=== PATIENT | female | born 1985 ===

== ENCOUNTER 2017-04-25 08:33 | Inpatient (IN) | payer MEDICAID ==
[2017-04-25] MEDS ORDERED: ePHEDrine SULFATE IV PRN ×2 (12:39→14:24)
[2017-04-25] MEDS ORDERED: BRETHINE IVP PRN (12:39)
[2017-04-25] MEDS ORDERED: STADOL IV PRN (12:39)
[2017-04-25] MEDS ORDERED: MINERAL OIL PO PRN (12:39)
[2017-04-25] MEDS ORDERED: ZOFRAN IV PRN ×2 (12:39→22:24)
[2017-04-25] MEDS ORDERED: BRETHINE SUB-Q PRN (12:39)
[2017-04-25] MEDS ORDERED: NARCAN 0.4 MG/1 ML IV PRN (12:39)
[2017-04-25] MEDS ORDERED: POLYCILLIN/NS 2 GM/100 ML 2 GM/100 ML BAG IV ONE (12:39)
[2017-04-25] MEDS ORDERED: SUBLIMAZE IV PRN (12:39)
[2017-04-25] MEDS ORDERED: XYLOCAINE 2% INFILTRATI ONE (12:39)
[2017-04-25 12:43] LABS: Hematocrit 34.3 % (30.3-42.9); Hemoglobin 11.4 gm/dl (10.1-14.3); Mean Corpuscular HGB Conc 33 % (30-34); Mean Corpuscular Hemoglobin 29 pg (28-32); Mean Corpuscular Volume 86 fl (79-97); Platelet Count 187 K/mm3 (140-440); Red Blood Count 3.99 M/mm3 (3.65-5.03); Red Cell Distribution Width 13.6 % (13.2-15.2)
[2017-04-25] MEDS ORDERED: LACTATED RINGERS 1,000 ML IV SCH (13:00)
[2017-04-25] MEDS ORDERED: PITOCin/NS 20 UNIT/1000ML DRIP 20 UNITS/1,000 ML BAG IV SCH ×2 (13:00→22:24)
[2017-04-25] MEDS: LACTATED RINGERS 1,000 ML IV SCH ×3 (13:17→17:53)
[2017-04-25] MEDS ORDERED: NARCAN 2 MG/2 ML IV PRN (14:24)
[2017-04-25] MEDS ORDERED: fentaNYL-BUPIV 2 MCG/ML-0.125% 200 MCG/100 ML BAG EPIDURAL SCH (15:00)
--- NOTE | 2017-04-25 16:11 | History and Physical Report ---
History of Present Illness Date of examination: 04/25/17 Date of admission: 04/25/17 08:34 Chief complaint: contractions History of present illness: Pt is a 31 year old -F[place] female JOYCE 04/29/17 at 39w3d who presents with regular painful contractions and cervical change from 3-4 cm with ambulation. She denies leakage of fluid and vaginal bleeding. She has had insufficient care x 3 visits at [facility] at 12, 22 and 28 wks complicated by pyelectasis (followed by MFM), glucose intolerance ( pt never completed her 3 hr GTT). Her GBS status in unknown. Past History Past Medical History: no pertinent history Past Surgical History: no surgical history Family/Genetic History: diabetes, heart disease, hypertension Social history: no significant social history - Obstetrical History Expected Date of Delivery: 04/29/17 Actual Gestation: 39 Week(s) 3 Day(s) : 2 Para: 1 Hx # Term Pregnancies: 1 Number of Pregnancies: 0 Spontaneous Abortions: 0 Induced : 0 Number of Living Children: 1 Medications and Allergies Allergies Allergy/AdvReac Type Severity Reaction Status Date / Time No Known Allergies Allergy Verified 04/25/17 09:18 Home Medications Medication Instructions Recorded Confirmed Last Taken Type 2/Iron/Folic Acid/Om3 1 each PO DAILY 04/25/17 04/25/17 04/24/17 09:00 History [Complete Jaquelin Dha] 1 Active Meds: Active Medications Butorphanol Tartrate (Stadol) 2 mg IV Q2H PRN PRN Reason: Pain , Severe (7-10) Ephedrine Sulfate (Ephedrine Sulfate) 10 mg IV Q2M PRN PRN Reason: Hypotension Ephedrine Sulfate (Ephedrine Sulfate) 10 mg IV Q2M PRN PRN Reason: Hypotension Fentanyl (Sublimaze) 100 mcg IV Q2H PRN PRN Reason: Labor Pain Lactated Ringer's (Lactated Ringers) 1,000 mls @ 125 mls/hr IV DIRECT CASSIDY Last Admin: 04/25/17 15:57 Dose: 125 mls/hr Ampicillin Sodium (Polycillin/Ns 1 Gm/50 Ml) 1 gm in 50 mls @ 100 mls/hr IV Q4HR CASSIDY PRN Reason: Protocol Lactated Ringer's (Lactated Ringers) 1,000 mls @ 125 mls/hr IV DIRECT CASSIDY Oxytocin/Sodium Chloride (Pitocin/Ns 20 Unit/1000ml Drip) 20 units in 1,000 mls @ 125 mls/hr IV DIRECT CASSIDY Oxytocin/Sodium Chloride (Pitocin/Ns 30 Unit/500ml) 30 units in 500 mls @ 4 mls /hr IV TITR CASSIDY PRN Reason: Protocol Fentanyl/Bupivacaine/Sodium Chlor (Fentanyl-Bupiv 2 Mcg/Ml-0.125%) 200 mcg in 100 mls @ 12 mls/hr EPIDURAL TITR CASSIDY PRN Reason: Protocol Mineral Oil (Mineral Oil) 30 ml PO QHS PRN PRN Reason: Constipation Naloxone HCl (Narcan 0.4 Mg/1 Ml) 0.1 mg IV Q2MIN PRN PRN Reason: Res Rate </= 8 or 02 SAT < 92% Naloxone HCl (Narcan 2 Mg/2 Ml) 0.2 mg IV Q5M PRN PRN Reason: Respiratory sedation Ondansetron HCl (Zofran) 4 mg IV Q8H PRN PRN Reason: Nausea And Vomiting Terbutaline Sulfate (Brethine) 0.25 mg SUB-Q ONCE PRN PRN Reason: Hyperstimulation/Hypertonicity Terbutaline Sulfate (Brethine) 0.25 mg IVP ONCE PRN PRN Reason: Hyperstimulation/Hypertonicity Review of Systems All systems: negative - Vital Signs Vital signs: Vital Signs Temp Resp 98.3 F 18 04/25/17 09:21 04/25/17 09:21 Temp Pulse Resp BP Pulse Ox 98.3 F 93 H 18 110/62 98 04/25/17 09:21 04/25/17 16:09 04/25/17 09:21 04/25/17 16:09 04/25/17 16:07 - Physical Exam Breasts: Positive: deferred Cardiovascular: Regular rate Lungs: Positive: Clear to auscultation Abdomen: Positive: soft (gravid ) Uterus: Positive: enlarged (gravid ) - Obstetrical FHR: category 1 Uterine Contraction Monitor Mode: External Cervical Dilatation: 4 (per RN ) Uterine Contraction Pattern: Irregular Uterine Tone Measurement Phase: Resting Uterine Contraction Intensity: Moderate Results Result Diagrams: 04/25/17 11:00 Abnormal lab results 04/25/17 Range/Units 11:00 WBC 12.2 H (4.5-11.0) K/mm3 All other labs normal. Assessment and Plan A: IUP at 39w3d Labor Insufficient Care GBS unknown Pyelectasis P: Admit to labor and delivery. GBS prophyalxis Routine intrapartum care.
[2017-04-25] MEDS ORDERED: POLYCILLIN/NS 1 GM/50 ML 1 GM/50 ML BAG IV SCH (16:41)
[2017-04-25] MEDS: PITOCin/NS 30 UNIT/500ML 30 UNITS/500 ML BAG IV SCH ×3 (17:06→18:05)
--- NOTE | 2017-04-25 17:22 | Event Note ---
Date: 04/25/17 Late entry. Pt comfortable with epidural. FHTs Category I. Cervix /. AROM - clear fluid. Second dose of Ampicillin hanging now. Begin pitocin augmentation as needed. Continue routine intrapartum care.
--- NOTE | 2017-04-25 19:31 | Procedure Note ---
OB Delivery Note - Delivery Date of Delivery: 04/25/17 Surgeon: LEO SUAREZ Estimated blood loss: 300cc - Vaginal Delivery presentation: vertex Intrapartum events: PROM->1hr before delivery Delivery induction: none Delivery augmentation: rupture of membranes, pitocin Delivery monitor: external FHT, external uterine Route of delivery: Delivery placenta: spontaneous Delivery cord: 3 umbilical vessels Episiotomy: none Delivery laceration: 1st degree (perineal and vaginal ), other (Bilateral periurethral ) Delivery repair: vicryl Anesthesia: epidural Delivery comments: Pt was last checked and noted to be 8.5 cm. Pt comfortable with epidural without complaint of pressure. FHTs noted to not be on tracing. Upon RN entry into the room, the was noted to be in the bed. NICU called for resuscitation. Upon on-call MD entry into the room, was being stimulated by NICU staff. Cord clamped and cut and handed to NICU staff at warmer. Cord blood not collected. Placenta delivered spontaneously (3VC, intact) . Vagina and perineum explored. Bilateral periurethral, first degree vaginal and first degree periurethral with 3-0 Vicryl in a standard fashion. EBL 300 mL. - Infant A at 1 minute: 3 at 5 minutes: 9 Infant Gender: Male (3382g (7lb 7oz) at 1855 pm)
[2017-04-25] MEDS ORDERED: PHENERGAN PO PRN (22:24)
[2017-04-25] MEDS ORDERED: DERMOPLAST TP PRN (22:24)
[2017-04-25] MEDS ORDERED: DULCOLAX PR PRN (22:24)
[2017-04-25] MEDS ORDERED: NORCO 5/325 PO PRN (22:24)
[2017-04-25] MEDS ORDERED: BENADRYL PO PRN (22:24)
[2017-04-25] MEDS ORDERED: MILK OF MAGNESIA PO PRN (22:24)
[2017-04-25] MEDS ORDERED: LANSINOH TP PRN ×2 (22:24)
[2017-04-25] MEDS ORDERED: SODIUM CHLORIDE FLUSH SYRINGE 10 ML IV PRN (22:24)
[2017-04-25] MEDS ORDERED: PHENERGAN PR PRN (22:24)
[2017-04-25] MEDS ORDERED: TYLENOL PO PRN (22:24)
[2017-04-25] MEDS ORDERED: FEOSOL PO SCH (22:24)
[2017-04-25] MEDS ORDERED: TUCKS PAD TP PRN (22:24)
[2017-04-26] MEDS: MOTRIN PO SCH ×4 (00:13→18:25)
[2017-04-26 09:38] LABS: Hematocrit 36.4 % (30.3-42.9); Hemoglobin 12.2 gm/dl (10.1-14.3)
[2017-04-26] MEDS ORDERED: PRENATAL VITAMIN PO SCH (10:00)
--- NOTE | 2017-04-26 15:25 | Progress Note ---
Assessment and Plan O: VSS AF A: Stable PP Day 1 PP H/H: 12.2/36.4 P: Stable PP Day 1 D/C home per request Subjective - Subjective Date of service: 04/26/17 Patient reports: appetite normal, voiding normally, pain well controlled, ambulating normally [place]: doing well, nursing well Objective - Vital Signs Latest vital signs: Vital Signs Temp Pulse Resp BP BP Pulse Ox 04/26/17 08:26 98.5 F 77 18 105/64 99 04/26/17 06:20 18 04/26/17 00:13 18 04/26/17 00:00 98.4 F 89 20 104/59 96 04/25/17 21:00 97.7 F 68 18 99/49 04/25/17 20:24 78 111/60 04/25/17 20:09 66 117/74 04/25/17 19:54 75 113/73 04/25/17 19:40 71 97 04/25/17 19:39 77 109/66 04/25/17 19:35 80 98 04/25/17 19:30 93 H 100 04/25/17 19:25 92 H 99 04/25/17 19:24 94 H 137/64 04/25/17 19:20 78 98 04/25/17 19:15 78 98 04/25/17 19:10 87 98 04/25/17 19:09 97.6 F 82 18 109/66 04/25/17 19:07 86 107/55 04/25/17 19:05 88 118/63 04/25/17 19:03 103 H 124/60 04/25/17 19:02 96 H 134/59 04/25/17 18:57 76 104/55 98 04/25/17 18:55 74 104/58 04/25/17 18:53 81 102/55 04/25/17 18:52 80 97 04/25/17 18:51 78 103/58 04/25/17 18:50 104 H 94 04/25/17 18:49 80 101/60 04/25/17 18:47 80 103/57 95 04/25/17 18:45 77 100/57 04/25/17 18:43 81 100/57 04/25/17 18:42 87 96 04/25/17 18:41 92 H 103/61 02/02/18 18:39 80 102/58 02/02/18 18:37 78 103/54 97 02/02/18 18:35 80 102/56 02/02/18 18:33 80 105/58 02/02/18 18:32 75 113/56 97 02/02/18 18:29 98.6 F 18 02/18 18:27 77 110/56 98 02/02/18 18:25 68 109/60 02/02/18 18:23 93 H 106/61 02/02/18 18:22 83 97 02/02/18 18:21 74 106/58 02/02/18 18:19 70 103/55 02//18 18:17 75 106/57 97 02/0218 18:15 88 112/64 02/0218 18:13 93 H 111/61 94 /02/18 18:12 72 97 02/02/18 18:11 82 111/61 02/02/18 18:09 76 110/63 02/02/18 18:07 85 103/62 96 02/0218 18:05 80 109/64 02/02/18 18:03 92 H 115/67 02/02/18 18:02 78 100 02/0218 18:01 99 H 116/67 02/02/18 17:59 77 110/64 02/02/18 17:57 90 108/62 98 /02/18 17:55 81 110/64 02/02/18 17:53 78 118/67 02/02/18 17:52 84 99 02/02/18 17:51 90 121/64 02/02/18 17:49 84 121/66 02/02/18 17:47 78 119/62 98 02/02/18 17:45 94 H 123/68 02/02/18 17:43 87 108/61 02/02/18 17:42 84 97 02/02/18 17:41 74 121/71 02/02/18 17:39 85 117/68 02/02/18 17:37 75 119/66 99 02/02/18 17:35 92 H 123/68 02/02/18 17:33 82 117/67 02/02/18 17:32 74 99 02/02/18 17:31 75 116/66 02/02/18 17:29 75 117/64 02/02/18 17:27 85 122/66 100 02/02/18 17:25 73 124/67 02/02/18 17:23 93 H 131/72 02/02/18 17:22 84 99 02/02/18 17:21 76 121/67 02/02/18 17:19 87 121/68 02/02/18 17:17 83 122/69 100 02/0218 17:15 78 115/67 02/02/18 17:13 73 111/68 02/0218 17:12 70 99 02/0218 17:11 97 H 116/71 02/18 17:09 86 113/58 02/05/11 17:07 87 116/60 99 02/0218 17:05 93 H 130/67 02/0218 17:03 83 119/61 02/18 17:02 76 99 02/18 17:01 83 123/65 02//18 16:59 85 124/63 02/02/18 16:57 83 126/59 99 02/0218 16:56 85 121/65 02/0218 16:53 85 116/65 02/02/18 16:52 87 100 02/0218 16:51 92 H 114/65 02/02/18 16:49 71 112/59 02/02/18 16:47 79 110/59 99 /02/18 16:45 74 111/57 02/02/18 16:43 78 111/57 02/02/18 16:42 72 99 02/02/18 16:41 88 112/61 02/02/18 16:39 73 111/56 02/02/18 16:37 86 109/61 99 02/02/18 16:35 87 117/56 02/02/18 16:33 86 114/56 02/02/18 16:32 95 H 99 02/02/18 16:31 88 112/55 02/02/18 16:29 94 H 115/59 02/02/18 16:28 90 139/71 02/02/18 16:27 92 H 100 02/02/18 16:25 89 106/67 02/02/18 16:23 104 H 107/63 02/02/18 16:22 92 H 99 02/02/18 16:21 86 112/63 04/25/17 16:19 100 H 108/62 04/25/17 16:17 94 H 108/60 100 04/25/17 16:15 93 H 118/61 04/25/17 16:13 97 H 111/63 04/25/17 16:12 94 H 97 04/25/17 16:11 93 H 109/63 04/25/17 16:09 93 H 110/62 04/25/17 16:07 108 H 112/66 98 04/25/17 16:05 96 H 107/62 04/25/17 16:03 98 H 109/61 04/25/17 16:02 95 H 98 04/25/17 16:01 96 H 107/64 04/25/17 15:57 85 99 04/25/17 15:52 89 99 04/25/17 15:47 81 98 04/25/17 15:42 85 97 04/25/17 15:37 85 96 04/25/17 15:32 101 H 97 04/25/17 15:29 85 113/69 04/25/17 15:27 77 97 Intake and Output 04/26/17 04/26/17 04/26/17 06:59 14:59 22:59 Intake Total 600 1560 Output Total 650 400 Balance -50 1160 Intake: Oral 600 960 Intake, Free Water 600 Output: Urine 650 400 Void 650 400 Other: Total, Intake Amount 240 240 Total, Output Amount 650 400 # Voids Void 1 1 - Exam Breasts: Present: normal, Lungs: Present: Normal air movement Abdomen: Present: normal appearance, soft. Absent: distention, tenderness Vulva: both: normal Uterus: Present: normal, firm, fundal height below umbilicus (2 below U, ML). Absent: bogginess, tenderness Extremities: Present: normal
--- NOTE | 2017-04-26 15:25 | Discharge Summary ---
Providers - Providers Date of Admission: 04/25/17 08:34 Date of discharge: 04/26/17 Attending physician: LEO SUAREZ 04/25/17 22:24 Consult to Alliance Director [CONS] Routine Reason For Exam: assistance with , SNS Primary care physician: LEO SUAREZ Hospitalization Reason for admission: active labor, IUP at term Delivery: Episiotomy: none Laceration: 1st degree Other procedures: none complications: none Discharge diagnosis: IUP at term delivered Darby baby: male Condition at discharge: Good Disposition: DC-01 TO HOME OR SELFCARE Plan - Discharge Medications Prescriptions: Ibuprofen [Motrin 600 MG tab] 600 mg PO Q6HR #30 tablet - Provider Discharge Summary Activity: routine, no sex for 6 weeks, no heavy lifting 4 weeks, no strenuous exercise Diet: routine Instructions: routine Additional instructions: [] Smoking cessation referral if applicable(refer to patient education folder for contact #) [] Refer to [facility] Booklet Call your doctor immediately for: * Fever > 100.5 * Heavy vaginal bleeding ( >1 pad per hour) * Severe persistent headache * Shortness of breath * Reddened, hot, painful area to leg or breast * Drainage or odor from incision. * Keep incision clean and dry at all times and follow doctor's instructions regarding bathing/showering - Follow up plan Follow up: LEO SUAREZ MD [Primary Care Provider] - JERRY DALTON CNM [Advanced Practice Nurse] - (RTO 4 weeks )
[2017-04-26 17:45] VITALS: BP 94/56
[2017-04-26] MEDS ORDERED: M-M-R II VACCINE SUB-Q ONE (19:40)
[2017-04-27] MEDS ORDERED: BOOSTRIX IM ONE (06:00)
== END 2017-04-26 22:01 | disposition home or self-care (01) | DRG 775 ==
LOC: TRG 08:33 → LD 08:34 → TRG 08:34 → OB 21:04
PROVIDERS: ADMIT Obstetrics & Gynecology; ATTEND Obstetrics & Gynecology
PROC: 10E0XZZ Delivery of Products of Conception, External Approach (ICD-10-PCS; principal; 2017-04-25)
PROC: 3E0234Z Introduction of Serum, Toxoid and Vaccine into Muscle, Percutaneous Approach (ICD-10-PCS; 2017-04-25)
PROC: 0HQ9XZZ Repair Perineum Skin, External Approach (ICD-10-PCS; 2017-04-25)
PROC: 10907ZC Drainage of Amniotic Fluid, Therapeutic from Products of Conception, Via Natural or Artificial Opening (ICD-10-PCS; 2017-04-25)
PROC: 3E0R3BZ Introduction of Anesthetic Agent into Spinal Canal, Percutaneous Approach (ICD-10-PCS; 2017-04-25)
PROC: 00HU33Z Insertion of Infusion Device into Spinal Canal, Percutaneous Approach (ICD-10-PCS; 2017-04-25)
DX: O42.02 Full-term premature rupture of membranes, onset of labor within 24 hours of rupture (principal); Z23 Encounter for immunization; O70.0 First degree perineal laceration during delivery; Z3A.39 39 weeks gestation of pregnancy; Z37.0 Single live birth
CPT/HCPCS: 36415; 59025; 85014; 85018; 85027; 86592; 86850; 86900; 86901; 88307; J0290; J2590; J7120